=== PATIENT | female | born 1965 | race African-American/Black ===

== ENCOUNTER 2021-07-20 10:48 | Emergency (ER) | payer BC ==
[~2021-07-20] VITALS: Ht 165.1 cm; Wt 63.5 kg
[2021-07-20 11:05] VITALS: BP 136/90
--- NOTE | 2021-07-20 11:30 | NUR ---
PT AMBULATED TO BED 11
--- NOTE | 2021-07-20 11:39 | NUR ---
55 Y FEMALE WITH C/O LUMP ON RIGHT BREAST X 3 WEEKS. PT STATED A LUMP APPEREARED IN HER R AXILLARY REGION THAT RESOLVED ITSELF. AFTERWARDS THE LUMP ON HER R BREAST APPERARED. DENIES ANY PAIN, BUT STATES "IT FEELS LIKE PRESSURE WHERE THE LUMP." UPON ASSESSMENT LUMP IS FIRM TO TOUCH, BUT THERE IS NO PAIN WITH PALPATION. PT STATED SHE HAS FAMILY HX OF BREAST CANCER. PMH: HTN, HYSTERECTOMY NKA
--- NOTE | 2021-07-20 12:28 | NUR ---
DR. LUA BEDSIDE EVALUATING PT
--- NOTE | 2021-07-20 12:39 | NUR ---
Female Integration Lead accompanied female patient for Breast Exam.
[2021-07-20 12:50] VITALS: BP 128/101
--- NOTE | 2021-07-20 12:51 | NUR ---
Patient discharged with v/s stable. Written and verbal after care instructions given and explained. Patient verbalized understanding. Ambulatory with steady gait. All questions addressed prior to discharge. Advised to follow up with PMD.
== END 2021-07-20 12:51 | disposition home or self-care (01) ==
LOC: MED 10:48
DX: N63.10 Unspecified lump in the right breast, unspecified quadrant (principal); I10 Essential (primary) hypertension
CPT/HCPCS: 99281